=== PATIENT | female | born 1995 | race Caucasian/White ===

== ENCOUNTER 2017-12-12 21:08 | Emergency (ER) | payer OTHER ==
[2017-12-12 21:25] VITALS: BP 145/80; PULSE 87; TEMP 98.1; BMI 37.5
--- NOTE | 2017-12-12 21:25 | PDOC ---
Rapid Medical Evaluation Chief Complaint: Back Pain Time Seen by Provider: 12/12/17 21:23 Medical Evaluation: Allergies Allergy/AdvReac Type Severity Reaction Status Date / Time corn [[place]] Allergy Unknown Verified 06/05/16 21:25 egg Allergy Unknown Verified 06/05/16 21:25 peanut Allergy Unknown Verified 06/05/16 21:25 No Known Drug Allergies Allergy Verified 06/05/16 21:25 shellfish derived Allergy Verified 06/05/16 21:25 12/12/17 21:23 Pt. is a 22 y/o F who presents with one week of low back pain radiating down the L leg. No bladder/bowel incontinence, saddle anesthesia Exam: Normal gait, AAOx3, no gross neuro deficits Orders: nothing Pt. to proceed to ED for further evaluation. Discharge Disposition - Diagnosis Back pain Qualifiers: Back pain location: back pain in unspecified location Chronicity: unspecified Back pain laterality: unspecified Qualified Code(s): M54.9 - Dorsalgia, unspecified - Referrals Referrals: Alba Patrick MD [Primary Care Provider] - - Patient Instructions - Post Discharge Activity
--- NOTE | 2017-12-12 22:10 | PDOC ---
History of Present Illness - General Chief Complaint: Back Pain Stated Complaint: BACK PAIN Time Seen by Provider: 12/12/17 21:23 - History of Present Illness Initial Comments: 22-year-old female with a past medical history significant for polycystic ovarian disease on oral control presents for evaluation of lower back pain with bilateral leg radiculopathy about the posterior lateral aspect of both legs left greater than right. She denies any loss of bowel or bladder function or saddle paresthesias. Pain is exacerbated with activity and relieved with rest with the above-mentioned radiation she has taken Motrin without much relief. 12/12/17 22:06 Past History - Past Medical History Allergies/Adverse Reactions: Allergies Allergy/AdvReac Type Severity Reaction Status Date / Time corn [[place]] Allergy Unknown Verified 12/12/17 21:26 egg Allergy Unknown Verified 12/12/17 21:26 peanut Allergy Unknown Verified 12/12/17 21:26 No Known Drug Allergies Allergy Verified 12/12/17 21:26 shellfish derived Allergy Verified 12/12/17 21:26 Home Medications: Ambulatory Orders Cyclobenzaprine HCl [Flexeril 10 mg] 10 mg PO HS PRN #10 tablet 12/12/17 Ibuprofen [Motrin -] 600 mg PO TID #30 tablet 12/12/17 Anemia: No Asthma: Yes Cancer: No Cardiac Disorders: No CVA: No COPD: No CHF: No Dementia: No Diabetes: No GI Disorders: No Disorders: No HTN: No Hypercholesterolemia: No Liver Disease: No Seizures: No Thyroid Disease: Yes (HYPOTHYROIDISM) Other medical history: PCOS - Suicide/Smoking/Psychosocial Hx Smoking History: Never smoked Have you smoked in the past 12 months: No Information on smoking cessation initiated: No Hx Alcohol Use: No Drug/Substance Use Hx: No Substance Use Type: None Hx Substance Use Treatment: No Review of Systems - Review of Systems Musculoskeletal: Yes: See HPI, Back Pain All Other Systems: Reviewed and Negative *Physical Exam - Vital Signs Last Vital Signs Temp Pulse Resp BP Pulse Ox 98.1 F 87 19 145/80 100 12/12/17 21:21 12/12/17 21:21 12/12/17 21:21 12/12/17 21:21 12/12/17 21:21 - Physical Exam Comments: Lumbar spine skin color and temperature within normal limits there is palpable bilateral paralumbar musculature spasm. Decreased range of motion. She has 5 out of 5 strength in bilateral lower extremities and EHL plantar and dorsiflexion quadriceps and hamstrings as well as hip flexion. She has no gross sensorimotor deficits she has a positive straight leg raise test on the right and left she's neurovascularly intact. 12/12/17 22:07 ED Treatment Course - ADDITIONAL ORDERS Additional order review: Laboratory Results 12/12/17 21:50 Urine HCG, Qual Negative Medical Decision Making - Medical Decision Making This is lumbar radiculopathy this 22-year-old female I will treat her with Motrin and Flexeril as she is already on a steroid for her polycystic ovarian disease. I will have her follow-up with spine surgery. 12/12/17 22:08 *DC/Admit/Observation/Transfer Diagnosis at time of Disposition: Lumbar radiculitis Back pain Qualifiers: Back pain location: back pain in unspecified location Chronicity: unspecified Back pain laterality: unspecified Qualified Code(s): M54.9 - Dorsalgia, unspecified - Discharge Dispostion Disposition: HOME Condition at time of disposition: Stable Decision to Admit order: No - Prescriptions Prescriptions: Cyclobenzaprine HCl [Flexeril 10 mg] 10 mg PO HS PRN #10 tablet PRN Reason: Muscle Spasms Ibuprofen [Motrin -] 600 mg PO TID #30 tablet - Referrals Referrals: Alba Patrick MD [Primary Care Provider] - Luis Rodriguez MD [Staff Physician] - - Patient Instructions Printed Discharge Instructions: Lumbar Radiculopathy, DI for Lumbar Radiculopathy Additional Instructions: These return to the emergency room should her symptoms worsen or go unresolved. I'm unable to prescribe a steroid because you are already on a control pill. Take the Motrin and Flexeril as prescribed be sure to follow-up with spine surgery within the next 1-2 days - Post Discharge Activity
== END 2017-12-12 22:12 | disposition home or self-care (01) ==
LOC: JERFT 21:08
DX: M54.16 Radiculopathy, lumbar region (principal); E28.2 Polycystic ovarian syndrome; E03.9 Hypothyroidism, unspecified
CPT/HCPCS: 84703; 99281-25

== ENCOUNTER 2017-12-14 04:38 | Emergency (ER) | payer OTHER ==
[2017-12-14] MEDS ORDERED: KETOROLAC TROMETHAMINE 30 MG/1 ML VIAL IM ONE (05:42)
[2017-12-14 05:48] VITALS: BP 133/72; PULSE 84; TEMP 98.3; BMI 34.5
[2017-12-14 05:50] LABS: URINE APPEARANCE CLEAR; URINE BILIRUBIN NEGATIVE (<2.0 mg/dL); URINE COLOR LTYELLOW; URINE GLUCOSE (UA) NEGATIVE (NEGATIVE); URINE KETONE NEGATIVE (NEGATIVE); URINE LEUK ESTERASE NEGATIVE (NEGATIVE); URINE NITRITE NEGATIVE (NEGATIVE); URINE PROTEIN NEGATIVE (NEGATIVE); URINE UROBILINOGEN NEGATIVE mg/dL (0.2-1.0)
[2017-12-14 05:52] LABS: HCG,QUALITATIVE URINE NEGATIVE
[2017-12-14 05:57] LABS: EPI CELLS RARE /HPF (FEW); URINE BACTERIA RARE /hpf (NONE SEEN)
--- NOTE | 2017-12-14 06:08 | PDOC ---
History of Present Illness - General Chief Complaint: Back Pain Stated Complaint: BACK PAIN Time Seen by Provider: 12/14/17 05:01 History Source: Patient - History of Present Illness Initial Comments: 12/14/17 06:00 22 year old female with lower back pain with pain radiating to both legs. right leg worse than left leg. Patient was seen in the ED 2 days ago , was give flexeril and ibuprofen. 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 Past History - Past Medical History Allergies/Adverse Reactions: Allergies Allergy/AdvReac Type Severity Reaction Status Date / Time corn [[place]] Allergy Unknown Verified 12/14/17 05:49 egg Allergy Unknown Verified 12/14/17 05:49 peanut Allergy Unknown Verified 12/14/17 05:49 No Known Drug Allergies Allergy Verified 12/12/17 21:26 shellfish derived Allergy Verified 12/14/17 05:49 Home Medications: Ambulatory Orders Cyclobenzaprine HCl [Flexeril 10 mg] 10 mg PO HS PRN #10 tablet 12/12/17 Ibuprofen [Motrin -] 600 mg PO TID #30 tablet 12/12/17 Anemia: No Asthma: Yes Cancer: No Cardiac Disorders: No CVA: No COPD: No CHF: No Dementia: No Diabetes: No GI Disorders: No Disorders: No HTN: No Hypercholesterolemia: No Liver Disease: No Seizures: No Thyroid Disease: Yes (HYPOTHYROIDISM) - Suicide/Smoking/Psychosocial Hx Smoking History: Never smoked Have you smoked in the past 12 months: No Information on smoking cessation initiated: No Hx Alcohol Use: No Drug/Substance Use Hx: No Substance Use Type: None Hx Substance Use Treatment: No Review of Systems - Review of Systems Able to Perform ROS?: Yes Is the patient limited Nepali proficient: No Musculoskeletal: Yes: Back Pain *Physical Exam - Vital Signs Last Vital Signs Temp Pulse Resp BP Pulse Ox 98.3 F 84 18 133/72 99 12/14/17 05:44 12/14/17 05:44 12/14/17 05:44 12/14/17 05:44 12/14/17 05:44 - Physical Exam General Appearance: Yes: Appropriately Dressed Gastrointestinal/Abdominal: positive: Normal Bowel Sounds, Soft Musculoskeletal: positive: Vertebral Tenderness (lumbar area tenderness, able to weightbear) Extremity: positive: Normal Capillary Refill, Normal Inspection, Normal Range of Motion, Other (able to leg raise) Integumentary: positive: Normal Color, Dry, Warm Neurologic: positive: Fully Oriented, Alert, Normal Mood/Affect ED Treatment Course - ADDITIONAL ORDERS Additional order review: Laboratory Results 12/14/17 05:33 Urine HCG, Qual Negative - RADIOLOGY Radiology Studies Ordered: Category Date Time Status SPINE-LUMBAR SACRAL [RAD] Stat Radiology 12/14/17 05:10 Ordered Medical Decision Making - Medical Decision Making 12/14/17 06:09 LOw back pain P: lumbar spine xray pain control decadron *DC/Admit/Observation/Transfer Diagnosis at time of Disposition: Lumbar radiculitis - Referrals Referrals: Alba Patrick MD [Primary Care Provider] - Ashkan Mcnair MD [Staff Physician] - Call tomorrow - Patient Instructions Printed Discharge Instructions: DI for Lumbar Radiculopathy Additional Instructions: continue flexeril and ibuprofen as prescribed. follow up with orthopedic as soon as possible. Additional Instructions: * Please call your personal physician to report your Emergency Department visit and to report your progress, if any. * If there is no improvement in symptoms in 2 days call your physician. * Return to the Emergency Department for any worsening symptoms. - Post Discharge Activity
[2017-12-14] MEDS ORDERED: DEXAMETHASONE SOD PHOSPHATE 10 MG/1 ML VIAL IM ONE (06:52)
[2017-12-14] MEDS ORDERED: DEXAMETHASONE SOD PHOSPHATE 10 MG/1 ML VIAL ONE (06:53)
[2017-12-14] MEDS ORDERED: KETOROLAC TROMETHAMINE 30 MG/1 ML VIAL ONE (06:53)
--- NOTE | 2017-12-14 07:34 | PDOC ---
*Physical Exam - Vital Signs Last Vital Signs Temp Pulse Resp BP Pulse Ox 98.3 F 84 18 133/72 99 12/14/17 05:44 12/14/17 05:44 12/14/17 05:44 12/14/17 05:44 12/14/17 05:44 - Physical Exam General Appearance: Yes: Appropriately Dressed. No: Apparent Distress HEENT: positive: Normal Voice Neck: positive: Supple Respiratory/Chest: negative: Respiratory Distress Gastrointestinal/Abdominal: positive: Soft. negative: Tender Musculoskeletal: negative: CVA Tenderness, Vertebral Tenderness Integumentary: positive: Dry, Warm Neurologic: positive: Fully Oriented, Alert, Normal Mood/Affect, Motor Strength 10/27 ED Treatment Course - ADDITIONAL ORDERS Additional order review: Laboratory Results 12/14/17 05:33 Urine Color Ltyellow Urine Appearance Clear Urine pH 6.0 Ur Specific [place] 1.019 Urine Protein Negative Urine Glucose (UA) Negative Urine Ketones Negative Urine Blood 1+ H Urine Nitrite Negative Urine Bilirubin Negative Urine Urobilinogen Negative Ur Leukocyte Esterase Negative Urine WBC (Auto) <1 Urine RBC (Auto) 2 Ur Epithelial Cells Rare Urine Bacteria Rare Urine HCG, Qual Negative - Medications Given in the ED: ED Medications Discontinued Medications Generic Name Dose Route Start Last Admin Trade Name Freq PRN Reason Stop Dose Admin Dexamethasone Sodium Phosphate 10 mg 12/14/17 06:52 12/14/17 06:58 Decadron Injection - IM 12/14/17 06:53 10 mg ONCE ONE Administration Ketorolac Tromethamine 30 mg 12/14/17 05:42 12/14/17 05:50 Toradol Injection - IM 12/14/17 05:43 30 mg ONCE ONE Administration Medical Decision Making - Medical Decision Making 12/14/17 07:32 Received sign out at 7am Patient is a 22-year-old female, history of PCOS, here for second ER visit for lower back pain. Patient was seen in ED 2 days ago, diagnosed with lumbar radiculopathy and discharged on Motrin and Flexeril. Patient returned today with persistent pain. Pain located to lower back radiating to bilateral lower extremities, left greater than right. UA and test negative. X-ray pending. Pt has since been given pain meds and pending reassessment. Plan is to dc w/ ortho spine f/u per [facility] 12/14/17 07:41 On reevaluation, patient states pain is a bit improved with Toradol and Decadron in ED. Patient now reports that she does have a history of chronic lower back pain and that several years ago when she had a particularly severe case, she was diagnosed with left-sided sciatica. States she might have had an MRI but does not remember. Also states she's had multiple x-rays with no findings. Has never seen a medical record retrieval specialist, but usually follows up with her PMD which she has not seen in a long time per patient. Patient states pain reoccurred this week, located to lower back radiating to bilateral lower extremities, left greater than right, feels like pressure and wakes her up at night. States Motrin and Flexeril not helping at home. Denies any lower extremity weakness, numbness, tingling, saddle anesthesia or bowel or bladder incontinence. Patient ambulatory in ED. Will cancel x-ray as discussed with patient as no utility in plain films at this time as no recent trauma. Will discharge with a small dose of tramadol and have patient follows up with neurologist. Reasons to return to ER discussed with patient *DC/Admit/Observation/Transfer Diagnosis at time of Disposition: Lumbar radiculitis - Discharge Dispostion Disposition: HOME Condition at time of disposition: Improved - Prescriptions Prescriptions: Tramadol HCl 50 mg PO Q6H #12 tablet MDD 200 mg - Referrals Referrals: Ashkan Mcnair MD [Staff Physician] - Call tomorrow Alba Patrick MD [Primary Care Provider] - Awais Erazo MD [Staff Physician] - - Patient Instructions Printed Discharge Instructions: DI for Lumbar Radiculopathy Additional Instructions: Continue Motrin and Flexeril for pain. If medications do not work, you can take a dose of tramadol. Tramadol can make you sleepy, so do not take meds if you are leaving the house or driving. It can also make you constipated so drink plenty of water, increase fiber in your diet and you can also take milk of magnesia as needed for constipation. Please follow-up with Dr. Herron of ortho spine or with Dr Erazo of neurology for further evaluation for your back pain. If symptoms worsen as discussed with you in ER, return to ER immediately - Post Discharge Activity Forms/Work/School Notes: Back to Work
== END 2017-12-14 08:12 | disposition home or self-care (01) ==
LOC: JER 04:38
PROC: 3E023GC Introduction of Other Therapeutic Substance into Muscle, Percutaneous Approach (ICD-10-PCS; principal; 2017-12-14)
PROC: 3E0233Z Introduction of Anti-inflammatory into Muscle, Percutaneous Approach (ICD-10-PCS; 2017-12-14)
DX: M54.16 Radiculopathy, lumbar region (principal)
CPT/HCPCS: 81003; 81015; 84703; 96372; 99281-25; J1100

== ENCOUNTER 2018-05-26 23:43 | Emergency (ER) | payer OTHER ==
[2018-05-27 01:11] VITALS: BMI 34.4
--- NOTE | 2018-05-27 01:13 | PDOC ---
History of Present Illness - General Chief Complaint: Back Pain Stated Complaint: BACK PAIN Time Seen by Provider: 05/27/18 01:01 History Source: Patient Exam Limitations: No Limitations - History of Present Illness Initial Comments: 05/27/18 01:09 CHIEF COMPLAINT: Left lower back pain HISTORY OF PRESENT ILLNESS: This is a 23-year-old woman past medical history of lower back pain with sciatica, asthma, PCOS presents emergency department for evaluation of acute on chronic lower back pain. Patient states she is in her usual back pain which radiates down the left buttocks into the back of her left leg. Patient reports the pain is worse with flexion of the hip and ambulation. Patient states she got home from work today and was changing her clothes when the pain started gradually and then upon a few steps after initial onset of pain the pain reached its maximum of 9/10. Patient presented to the emergency department for evaluation. She denies any incontinence of bladder or bowel, difficulty in micturition, saddle anesthesia, foot drop, IV drug use or history of cancer. REVIEW OF SYSTEMS: GENERAL: Afebrile, denies any weakness RESPIRATORY: No cough, wheezing, or hemoptysis. CARDIAC: No chest pain or shortness of breath MUSCULOSKELETAL: Pain to generalized lower back. No point tenderness. Pain worse on left than right. SKIN : No erythema, no bruising, no deformity. GI/: Denies any abdominal pain, no urinary difficulty, incontinence or urinary retention. RECTAL: Denies any difficulty this A.m. NEUROLOGICAL: Denies any numbness or tingling. No neurosensory deficits. PHYSICAL EXAM: GENERAL: The patient is awake, alert, and fully oriented, in no acute distress. RESPIRATORY: Lungs clear bilaterally, no rhonchi wheezes or crackles CARDIAC: S1-S2 audible, no murmur rub or gallop MUSCULOSKELETAL: Pain to left lower back, nonradiating, no sensory deficit. Less than 2 second cap refill, +2 pedal pulses. No spinal point tenderness. Normal reflexive and no deficits to sensation or strength. No palpable muscle spasms. Pain worsens with passive flexion of left hip. GI/: Abdomen soft, nontender, nondistended. No rebound tenderness. No masses palpable. RECTAL: Deferred patient with no neurological findings SKIN: Warm, Dry, normal turgor, no erythema, no edema no bruising. Past History - Past Medical History Allergies/Adverse Reactions: Allergies Allergy/AdvReac Type Severity Reaction Status Date / Time corn [[place]] Allergy Unknown Verified 12/14/17 05:49 egg Allergy Unknown Verified 12/14/17 05:49 peanut Allergy Unknown Verified 12/14/17 05:49 No Known Drug Allergies Allergy Verified 12/12/17 21:26 shellfish derived Allergy Verified 12/14/17 05:49 Home Medications: Ambulatory Orders Cyclobenzaprine HCl [Flexeril 10 mg] 10 mg PO HS PRN #10 tablet 12/12/17 Ibuprofen [Motrin -] 600 mg PO TID #30 tablet 12/12/17 Tramadol HCl 50 mg PO Q6H #12 tablet MDD 200 mg 12/14/17 Anemia: No Asthma: Yes Cancer: No Cardiac Disorders: No CVA: No COPD: No CHF: No Dementia: No Diabetes: No GI Disorders: No Disorders: No HTN: No Hypercholesterolemia: No Liver Disease: No Seizures: No Thyroid Disease: Yes (HYPOTHYROIDISM) - Suicide/Smoking/Psychosocial Hx Smoking History: Never smoked Have you smoked in the past 12 months: No Hx Alcohol Use: No Drug/Substance Use Hx: No Substance Use Type: None Hx Substance Use Treatment: No Medical Decision Making - Medical Decision Making 05/27/18 01:12 A/P: 23-year-old female with acute on chronic lower back pain No spinal tenderness noted Pain to palpation over the left paraspinous muscles. No muscle spasms present Pain worsens with flexion of the left hip No neurosensory deficits present Urine , urinalysis, analgesia, reassess 05/27/18 02:54 Patient still with mild pain after Toradol, Tylenol, Valium, Decadron. Patient states pain is tolerable. I will discharge the patient home to follow-up with her neurologist and her previously scheduled appointment later this month. Patient is to contact her neurologist today to see if she can move her appointment up sooner. Patient is in agreement this plan and is verbalizes understanding of discharge instructions. *DC/Admit/Observation/Transfer Diagnosis at time of Disposition: Back pain Qualifiers: Back pain location: low back pain Chronicity: acute Back pain laterality: left Sciatica presence: with sciatica Sciatica laterality: sciatica of left side Qualified Code(s): M54.42 - Lumbago with sciatica, left side - Discharge Dispostion Disposition: HOME Condition at time of disposition: Fair Decision to Admit order: No - Referrals Referrals: Alba Patrick MD [Primary Care Provider] - - Patient Instructions Additional Instructions: Take Tylenol or Motrin as needed for pain. Follow manufacturers instructions for appropriate dosage. Clinical your neurologist today to see if he can move her appointment up sooner this month. Warm moist heat applied to your back may help alleviate pain. Return to emergency department for discoloration of the foot, numbness or tingling to the foot, worsening pain, or any other concerns. Thank you very much for choosing us to provide your emergent healthcare needs. - Post Discharge Activity Forms/Work/School Notes: Back to Work
[2018-05-27] MEDS ORDERED: ACETAMINOPHEN 500 MG TABLET (FP) PO ONE (01:14)
[2018-05-27] MEDS ORDERED: ACETAMINOPHEN 325 MG TABLET (FP) ONE (01:19)
[2018-05-27 01:55] LABS: HCG,QUALITATIVE URINE Negative
[2018-05-27] MEDS ORDERED: diazePAM 5 MG TABLET PO ONE (01:56)
[2018-05-27] MEDS ORDERED: KETOROLAC TROMETHAMINE 30 MG/1 ML VIAL IVPUSH ONE (01:56)
[2018-05-27 02:01] LABS: URINE APPEARANCE CLEAR; URINE BILIRUBIN NEGATIVE (<2.0 mg/dL); URINE COLOR LTYELLOW; URINE GLUCOSE (UA) NEGATIVE (NEGATIVE); URINE KETONE NEGATIVE (NEGATIVE); URINE LEUK ESTERASE NEGATIVE (NEGATIVE); URINE NITRITE NEGATIVE (NEGATIVE); URINE PROTEIN NEGATIVE (NEGATIVE); URINE UROBILINOGEN NEGATIVE mg/dL (0.2-1.0)
[2018-05-27] MEDS ORDERED: KETOROLAC TROMETHAMINE 30 MG/1 ML VIAL ONE (02:06)
[2018-05-27] MEDS ORDERED: diazePAM 5 MG TABLET ONE (02:09)
[2018-05-27] MEDS ORDERED: DEXAMETHASONE SOD PHOSPHATE 4 MG/1 ML VIAL IVPUSH ONE (02:45)
[2018-05-27] MEDS ORDERED: DEXAMETHASONE SOD PHOSPHATE 4 MG/1 ML VIAL ONE (02:50)
[2018-05-27 03:10] VITALS: BP 122/70; PULSE 72; TEMP 98.4
== END 2018-05-27 03:07 | disposition home or self-care (01) ==
LOC: JER 23:43
PROC: 3E033GC Introduction of Other Therapeutic Substance into Peripheral Vein, Percutaneous Approach (ICD-10-PCS; principal; 2018-05-26)
PROC: 3E0333Z Introduction of Anti-inflammatory into Peripheral Vein, Percutaneous Approach (ICD-10-PCS; 2018-05-26)
DX: M54.42 Lumbago with sciatica, left side (principal)
CPT/HCPCS: 81003; 84703; 87086; 96374; 96375; 99282-25

== ENCOUNTER 2018-05-28 01:12 | Observation (INO) | payer OTHER ==
[2018-05-28 01:22] VITALS: BMI 35.4
[2018-05-28] MEDS ORDERED: LORazepam 2 MG/ML SDV VIAL ONE (02:17)
--- NOTE | 2018-05-28 03:44 | PDOC ---
Attending Attestation - Resident Resident Name: Casey Lowery - ED Attending Attestation I have performed the following: I have examined & evaluated the patient, The case was reviewed & discussed with the resident, I agree w/resident's findings & plan, Exceptions are as noted - HPI HPI: 05/28/18 03:44 Ms Rivers is a 23 yo F who presents to the ER for evaluation of back pain She has a h/o PCOS and a history of chronic back pain for which she has been seen in the ER several times She was followed up by a Neurologist who referred her for a repeat MRI which demonstrated left L5 nerve compression, central spinal canal stenosis, left S1 compression, mild compression left S2, no L3-L4 central canal stenosis. Subsequent to this, pt was seen by her Neurologist who recommended conservative therapy - PT. PT was supposed to have a follow up appointment with neurosurgeon blake. Yesterday, she was crushing boxes at work by stepping on them She noted that after this her back became more painful Pt was seen in the ER given medications which improved her symptoms Pt went home and by the morning, her pain has worsened No bowel or bladder incontinence (pt has not been able to have a bowel movement due to pain) She is ambulatory but this is painful for her No direct trauma to the back No IVDU 05/28/18 03:51 - Physicial Exam PE: 05/28/18 04:13 On examination: General: A&O x3 appearing in mild distress, anxious Skin: w/o signs of trauma, ecchymosis at pain site HEENT: PERRLA Neck: Supple, firm, FROM, NT Respiratory: CTA w/o W/R/R B/L Cardiac: RRR, w/o M/R/G GI: NT/ND, NL bowel sounds Back is symmetrical, straight. Pt is able to bend forward but this elicits pain. No tenderness appreciated to vertebrae. No step-offs. No deformities appreciated. There is no CVA tenderness appreciated bilaterally. The patient without any paravertebral muscle tenderness. Musculoskeletal: The patient has limited range of motion of lower extremities - due to pain. Straight leg raise is (+) on left side. Dorsiflexion and plantar flexion are intact of the bilateral lower extremities bilaterally. Sensation is intact throughout the distal feet. Neurologic: The patient is awake, alert, oriented x3. Gross motor and sensory exam is found to be intact. Muscle strength is 5/5 lower extremities bilaterally (L4,L5, S1). Sensation intact throughout (L4, L5, S1) - Medical Decision Making 05/28/18 04:16 Pt with chronic back pain which has worsened since yesterday This is now patient's 2nd visit She has been taking anti inflammatories She was given steroids yesterday She reports severe and intractable back pain Will place on observation
--- NOTE | 2018-05-28 04:20 | PDOC ---
History of Present Illness - General Chief Complaint: Pain, Acute Stated Complaint: LOW BACK PAIN Time Seen by Provider: 05/28/18 01:26 History Source: Patient - History of Present Illness Initial Comments: 05/28/18 04:20 23F with pmh of lumbar radiculopathy presents with acute exacerbation of sciatica pain since 2 days ago. She has a h/o PCOS and a history of chronic back pain for which she has been seen in the ER several times She was followed up by Dr. Fuller who referred her for a repeat MRI which demonstrated worsening left L5 nerve compression, central spinal canal stenosis , left S1 compression, mild compression left S2, no L3-L4 central canal stenosis. Patient was then refered to PT and neurosurgery who never followed up as per patient. Pain was exacerbated yesterday upon stromping on boxes. Was given muscle relaxant in the ED with no relief. Pt went home and by the morning, her pain has worsened Denies incontinence. Denies saddle anesthesia Amble to ambulate with difficulty, amble to move her foot, full sensation but pain upon ranging her left leg. Past History - Past Medical History Allergies/Adverse Reactions: Allergies Allergy/AdvReac Type Severity Reaction Status Date / Time corn [[place]] Allergy Unknown Verified 12/14/17 05:49 egg Allergy Unknown Verified 12/14/17 05:49 peanut Allergy Unknown Verified 12/14/17 05:49 No Known Drug Allergies Allergy Verified 12/12/17 21:26 shellfish derived Allergy Verified 12/14/17 05:49 Home Medications: Ambulatory Orders Cyclobenzaprine HCl [Flexeril 10 mg] 10 mg PO HS PRN #10 tablet 12/12/17 Ibuprofen [Motrin -] 600 mg PO TID #30 tablet 12/12/17 Tramadol HCl 50 mg PO Q6H #12 tablet MDD 200 mg 12/14/17 Anemia: No Asthma: Yes Cancer: No Cardiac Disorders: No CVA: No COPD: No CHF: No Dementia: No Diabetes: No GI Disorders: No Disorders: No HTN: No Hypercholesterolemia: No Liver Disease: No Seizures: No Thyroid Disease: Yes (HYPOTHYROIDISM) Other medical history: PCOS - Immunization History Immunization Up to Date: Yes - Suicide/Smoking/Psychosocial Hx Smoking History: Current every day smoker Have you smoked in the past 12 months: Yes Number of Cigarettes Smoked Daily: 6 Information on smoking cessation initiated: No Hx Alcohol Use: No Drug/Substance Use Hx: No Substance Use Type: None Hx Substance Use Treatment: No Review of Systems - Review of Systems Able to Perform ROS?: Yes Is the patient limited Citizen [place] proficient: No Constitutional: No: Symptoms Reported HEENTM: No: Symptoms Reported Respiratory: No: Symptoms reported Cardiac (ROS): No: Symptoms Reported ABD/GI: No: Symptoms Reported : No: Symptoms Reported Musculoskeletal: No: Symptoms Reported Integumentary: No: Symptoms Reported Neurological: Yes: See HPI Endocrine: No: Symptoms Reported *Physical Exam - Vital Signs Last Vital Signs Temp Pulse Resp BP Pulse Ox 98.5 F 77 19 143/79 99 05/28/18 01:19 05/28/18 01:19 05/28/18 01:19 05/28/18 01:19 05/28/18 01:19 - Physical Exam General Appearance: Yes: Nourished, Appropriately Dressed. No: Apparent Distress HEENT: positive: EOMI, Normal ENT Inspection Respiratory/Chest: positive: Lungs Clear, Normal Breath Sounds. negative: Chest Tender, Respiratory Distress Cardiovascular: positive: Regular Rhythm, Regular Rate, S1, S2 Gastrointestinal/Abdominal: positive: Normal Bowel Sounds, Flat, Soft. negative : Tender Musculoskeletal: positive: Normal Inspection. negative: CVA Tenderness Extremity: positive: Normal Capillary Refill, Normal Inspection. negative: Normal Range of Motion Integumentary: positive: Normal Color, Dry, Warm Neurologic: positive: Fully Oriented, Alert, Normal Mood/Affect, Normal Response , Motor Strength 5/5 Moderate Sedation - Procedure Monitoring Vital Signs: Procedure Monitoring Vital Signs Temperature 98.5 F 05/28/18 01:19 Pulse Rate 77 05/28/18 01:19 Respiratory Rate 19 05/28/18 01:19 Blood Pressure 143/79 05/28/18 01:19 O2 Sat by Pulse Oximetry (%) 99 05/28/18 01:19 ED Treatment Course - Medications Given in the ED: ED Medications Discontinued Medications Generic Name Dose Route Start Last Admin Trade Name Freq PRN Reason Stop Dose Admin Lorazepam 3 mg 05/28/18 02:10 05/28/18 02:30 Ativan Injection - IVPUSH 05/28/18 02:11 3 mg ONCE ONE Administration Medical Decision Making - Medical Decision Making 05/28/18 04:57 23f with acute on chronic exacerbation of sciatica pain. Patient feels better with ativan as she is also anxious. However mother states after a couple hours that she is still in pain and anxious which is eventually corroborated by patient. Asking to be admitted for intractable pain and see orthopedic surgeon. Spoke about patient to hospitalist team. \ Admitting to ED short stay. *DC/Admit/Observation/Transfer Diagnosis at time of Disposition: Lumbar radiculitis - Discharge Dispostion Condition at time of disposition: Stable Decision to Admit order: Yes - Referrals Referrals: Alba Patrick MD [Primary Care Provider] - - Patient Instructions - Post Discharge Activity
[2018-05-28] MEDS ORDERED: ACETAMINOPHEN 1000 MG/100 ML VIAL (NON FORMULARY) IVPB ONE (04:35)
[2018-05-28] MEDS ORDERED: morphine CARPU-JECT 2 MG/1 ML DISP.SYRIN IVPUSH ONE (04:43)
[2018-05-28] MEDS ORDERED: MORPHINE SULFATE 2 MG/ML VIAL ONE (05:23)
[2018-05-28] MEDS ORDERED: ACETAMINOPHEN INJECTION 100 ML IVPB ONE (05:23)
--- NOTE | 2018-05-28 07:54 | PDOC ---
*Physical Exam - Vital Signs Last Vital Signs Temp Pulse Resp BP Pulse Ox 98.4 F 64 16 123/80 100 05/28/18 05:35 05/28/18 05:35 05/28/18 05:35 05/28/18 05:35 05/28/18 05:35 ED Treatment Course - Medications Given in the ED: ED Medications Discontinued Medications Generic Name Dose Route Start Last Admin Trade Name Dina PRN Reason Stop Dose Admin Acetaminophen 1,000 mg 05/28/18 04:35 05/28/18 05:35 Ofirmev Injection - IVPB 05/28/18 04:36 1,000 mg ONCE ONE Administration Lorazepam 3 mg 05/28/18 02:10 05/28/18 02:30 Ativan Injection - IVPUSH 05/28/18 02:11 3 mg ONCE ONE Administration Morphine Sulfate 2 mg 05/28/18 04:43 05/28/18 05:30 Morphine Injection - IVPUSH 05/28/18 04:44 2 mg ONCE ONE Administration Medical Decision Making - Medical Decision Making 05/28/18 07:47 Lakshmi Neves is a 23yo woman with a PMH of chronic back pain and PCOS who has presented to the ED twice this week with acute exacerbation of her chronic lumbar radiculopathy. Previous MRI showed compresion of left L5, S1, and mild compression of S2 nerves, central spinal canal stenosis. She has never been seen by neurosurgery. - Neurologically intact on exam - Ms Neves has received ativan 4mg, morphine 2mg, IV acetaminophen - Currently reports 6/10 pain, worse when standing or walking. She is only able to take 4 steps with a shuffling gait - Had been admitted to ED obs. Will contact hospitalist team for full obs admission given lack of significant improvement in symptoms 05/28/18 08:20 - Spoke to Dr Flowers regarding upgrade to overnight obs - Will admit to obs for intractable back pain. No labs at this time unless requested by med/surg team Seen and discussed with Dr Ceballos. Bianca Mercado PGY1 *DC/Admit/Observation/Transfer Diagnosis at time of Disposition: Lumbar radiculitis, Intractable back pain - Discharge Dispostion Condition at time of disposition: Stable Decision to Admit order: Yes - Referrals Referrals: Alba Patrick MD [Primary Care Provider] - - Patient Instructions - Post Discharge Activity
[2018-05-28] MEDS ORDERED: ACETAMINOPHEN 650 MG/20.3 ML ORAL SOLUTION (CUPS) PO PRN (09:06)
[2018-05-28] MEDS ORDERED: ALBUTEROL SO4 8 GM HFA INHALER IH PRN (09:12)
--- NOTE | 2018-05-28 09:15 | HP ---
CHIEF COMPLAINT: LLE pain PCP: Alba Patrick, Neuro: Jonny HISTORY OF PRESENT ILLNESS: Pt is a 23 y/o F with PMH sciatica with recent MRI demonstrating L5 nerve compression, central spinal canal stenosis, left S1 compression, mild compression left S2, no L3-L4 central canal stenosis. She presents to the ED with complaint of LLE pain which originates in her back on the left and shoots down the outside of the leg and into the toes. She describes electrical pain with associated numbness and tingling of the toes. She denies numbness in her groin and denies difficulty holding her bowels and bladder. She denies weakness or muscle wasting in the left leg. No other complaints. ER course was notable for: (1) VSS (2)Ativan, Ofirmev, Morphine (3) Recent Travel: denies PAST MEDICAL HISTORY: Sciatica, PCOS, L5 compression, spinal stenosis, Asthma (uses inhaler every few weeks), Anxiety, Depression PAST SURGICAL HISTORY: denies Social History: Smoking: current active smoker 6 cig/day Alcohol: denies Drugs: denies Family History: Allergies corn [[place]] Allergy (Unknown, Verified 12/14/17 05:49) egg Allergy (Unknown, Verified 12/14/17 05:49) peanut Allergy (Unknown, Verified 12/14/17 05:49) No Known Drug Allergies Allergy (Verified 12/12/17 21:26) shellfish derived Allergy (Verified 12/14/17 05:49) HOME MEDICATIONS: Motrin 600 prn, Nuva ring, Albuterol prn REVIEW OF SYSTEMS CONSTITUTIONAL: Absent: fever, chills, diaphoresis, generalized weakness, malaise, loss of appetite, weight change HEENT: Absent: rhinorrhea, nasal congestion, throat pain, throat swelling, difficulty swallowing, mouth swelling, ear pain, eye pain, visual changes CARDIOVASCULAR: Absent: chest pain, syncope, palpitations, irregular heart rate, lightheadedness , peripheral edema RESPIRATORY: Absent: cough, shortness of breath, dyspnea with exertion, orthopnea, wheezing, stridor, hemoptysis GASTROINTESTINAL: Absent: abdominal pain, abdominal distension, nausea, vomiting, diarrhea, constipation, melena, hematochezia GENITOURINARY: Absent: dysuria, frequency, urgency, hesitancy, hematuria, flank pain, genital pain MUSCULOSKELETAL: Absent: myalgia, arthralgia, joint swelling, back pain, neck pain SKIN: Absent: rash, itching, pallor HEMATOLOGIC/IMMUNOLOGIC: Absent: easy bleeding, easy bruising, lymphadenopathy, frequent infections ENDOCRINE: Absent: unexplained weight gain, unexplained weight loss, heat intolerance, cold intolerance NEUROLOGIC: unsteady gait due to pain Absent: headache, focal weakness or paresthesias, dizziness, , seizure, mental status changes, bladder or bowel incontinence PSYCHIATRIC: Absent: anxiety, depression, suicidal or homicidal ideation, hallucinations. PHYSICAL EXAMINATION Vital Signs - 24 hr 05/28/18 05/28/18 05/28/18 01:19 05:35 07:35 Temperature 98.5 F 98.4 F Pulse Rate 77 Pulse Rate [ 64 Left Radial] Respiratory 19 16 Rate Blood Pressure 143/79 Blood Pressure 123/80 [Left Arm] O2 Sat by Pulse 99 100 100 Oximetry (%) Gen: appears in pain HEENT: NCAT, EOMI, PERRL, multiple piercings Neck: supple, no jvd, no bruits Cardio: rrr, normal s1s2, no mrg Pulm: cta b/l Abd: obese, nondistended, soft, nontender Ext: no muscle wasting, 2+ pulses, no edema, LLE ROM limited by pain Neuro: CN2-12 intact. B/l UE intact strength and sensation. RLE intact strength and sensation. LLE intact sensation throughout. No numbness. 5/5 plantar/knee flexion, 4/5 hip flexion/extension. Straight leg test pos (pt had pain with leg as low as 2" off bed and refused further testing) ASSESSMENT/PLAN: Pt is a 23 y/o F with anxiety, depression, sciatica who presented to ED several times this week with intractable LLE pain. Pt is placed on Obs for intractable pain and inability to ambulate. #Pain -Known Lumbar stenosis with central stenosis -recent MRI demonstrating L5 nerve compression, central spinal canal stenosis, left S1 compression, mild compression left S2, no L3-L4 central canal stenosis -per pt, recent EMG with neurology demonstrated "lots of damage" -failed out pt therapy. Inability to ambulate at this time. -Toradol -Tylenol -Neuro consult. Known to Dr. Fuller. Call placed -Neurosurg consult #Asthma -controlled -resume albuterol IH prn #PPx -Hep Sub Q #Dispo -Obs Iain Flowers MD PGY-2 IM Visit type - Emergency Visit Emergency Visit: Yes Care time: The patient presented to the Emergency Department on the above date and was hospitalized for further evaluation of their emergent condition. - New Patient This patient is new to me today: Yes Date on this admission: 05/28/18 - Critical Care Critical Care patient: No
--- NOTE | 2018-05-28 09:16 | PN ---
Teaching Attending Note Name of Resident: Iain Flowers ATTENDING PHYSICIAN STATEMENT I saw and evaluated the patient. I reviewed the resident's note and discussed the case with the resident. I agree with the resident's findings and plan as documented. SUBJECTIVE: This is a 23 year old woman with a history of obesity, PCOS, asthma , depression, anxiety, low back pain, sciatica who comes to the ED complaining of pain in her low back radiating down her left leg with numbness below her left knee. She is having difficulty ambulating because of the pain. She denies numbness in her groin and she denies incontinence. She recently had an MRI showing left L5 nerve compression, central spinal canal stenosis, left S1 compression, mild compression left S2, no L3-L4 central canal stenosis. She was treated in the ED with acetaminophen 1000 mg IV, Ativan 3 mg IV, morphine 2 mg IV with no improvement. OBJECTIVE: Vital Signs Period Temp Pulse Resp BP Sys/Clements Pulse Ox Last 24 Hr 98.2 F-98.5 F 64-77 16-19 123-143/78-80 99-100 HEART: S1S2, RRR LUNGS: Clear ABDOMEN: Obese, soft, non-tender, non-distended, normal BS EXTREMITIES: No edema BACK: No spinal, paraspinal tenderness NEUROLOGICAL: Sensation intact RLE/LLE. Strength 5/5 in RLE. Strength unable to be tested in LLE secondary to pain. Straight leg raise positive on L and negative on R. B/L patellar and ankle reflexes 2+. Gait not observed - unable to stand secondary to pain. Home Medications Medication Instructions Recorded Ibuprofen [Motrin -] 600 mg PO TID #30 tablet 12/12/17 Albuterol Sulfate Inhaler - 2 inh PO Q6H PRN 05/28/18 [Ventolin Hfa Inhaler -] ASSESSMENT AND PLAN: This is a 23 year old woman with a history of obesity, PCOS, asthma, depression , anxiety, low back pain, sciatica who presented to the ED with worsening pain in her low back radiating down her left leg with numbness below her left knee. 1. Lumbar radiculopathy secondary to lumbar stenosis - Patient continues to have severe pain and unable to ambulate after acetaminophen, morphine, and Ativan - Place in observation - Pain control - Neurosurgery evaluation 2. Asthma - Stable - Albuterol as needed 3. PCOS 4. Depression with anxiety 5. Obesity with BMI 35.4
[2018-05-28] MEDS: IBUPROFEN 600 MG TABLET (FP) PO SCH ×2 (13:58→21:58)
[2018-05-28] MEDS: HEPARIN NA (PORCINE) 5,000 UNITS/ML 1ML VIAL SQ SCH ×2 (13:58→21:59)
[2018-05-28] MEDS: KETOROLAC TROMETHAMINE 15 MG/ML VIAL IVPUSH PRN ×2 (14:13→19:28)
[2018-05-28] MEDS: MORPHINE SULFATE 2 MG/ML VIAL IVPUSH PRN (21:57)
--- NOTE | 2018-05-28 21:57 | CON.NEURO ---
Consult - Past Medical History ...LMP: 11/08/11 - Alcohol/Substance Use Hx Alcohol Use: No - Smoking History Smoking history: Current every day smoker Have you smoked in the past 12 months: Yes Aproximately how many cigarettes per day: 6 Home Medications - Allergies Allergies/Adverse Reactions: Allergies Allergy/AdvReac Type Severity Reaction Status Date / Time corn [[place]] Allergy Unknown Verified 12/14/17 05:49 egg Allergy Unknown Verified 12/14/17 05:49 peanut Allergy Unknown Verified 12/14/17 05:49 No Known Drug Allergies Allergy Verified 12/12/17 21:26 shellfish derived Allergy Verified 12/14/17 05:49 - Home Medications Home Medications: Ambulatory Orders Ibuprofen [Motrin -] 600 mg PO TID #30 tablet 12/12/17 Albuterol Sulfate Inhaler - [Ventolin Hfa Inhaler -] 2 inh PO Q6H PRN 05/28/18 Physical Exam-Neuro Vital Signs: Vital Signs Temperature 98.3 F 05/28/18 18:36 Pulse Rate 83 05/28/18 18:36 Respiratory Rate 18 05/28/18 18:36 Blood Pressure 112/67 05/28/18 18:36 O2 Sat by Pulse Oximetry (%) 100 05/28/18 16:42 Assessment/Plan CC: Severe acute left radicular low back pain HPI : 23 year old female ,history of PCOS, Asthma and chronic low back pain. She has severe recurrent bouts of low back pain, mri of L spine showed there is sereve Left L 5-s1 stenosis along with extrusion of disc fragment in central cannal of Lumbar spine. She is known to me and she was sent for pain management and neurosurgery eval as outpatient , which she never saw. As her pain has gotten worse and she came to ed. Patient did get pt and medication were helping her partially Most of her pain in lower back and shoots down to left lower leg. she have numbness and burning sensation of left leg. She denies any motor weakness, or bowel or bladder symptoms. PMH as above Allergies/Adverse Reactions: Allergies Allergy/AdvReac Type Severity Reaction Status Date / Time corn [[place]] Allergy Unknown Verified 12/14/17 05:49 egg Allergy Unknown Verified 12/14/17 05:49 peanut Allergy Unknown Verified 12/14/17 05:49 No Known Drug Allergies Allergy Verified 12/12/17 21:26 shellfish derived Allergy Verified 12/14/17 05:49 Home Medications: Cyclobenzaprine HCl [Flexeril 10 mg] 10 mg PO HS PRN #10 tablet 12/12/17 Ibuprofen [Motrin -] 600 mg PO TID #30 tablet 12/12/17 Tramadol HCl 50 mg PO Q6H #12 tablet MDD 200 mg 12/14/17 ROS,FH,Social Hx, reviewed in chart NEUROLOGICAL EXAMINATION Alert oriented x 3, speech is normal , eomi , pupils reactive, no face asymmetry, VF normal face sensation and hearing is normal 5/5 all extremity there is diminished sensation on left L5 and s1 distribution in left leg below knee ankle reflex is slightly diminished mri of L spine reviewed Assessment: Severe L5 Radiculoapthy , severe central cannal stenosis on mri of L spine. No bowel or bladder symptoms, no motor weakness Plan: Suggest Neurosurgery consult, pain managemnet pt continue opioid for pain may add steroid Thanking you so much Mihai Fuller MD
[2018-05-29] MEDS: KETOROLAC TROMETHAMINE 15 MG/ML VIAL IVPUSH PRN ×2 (01:42→10:27)
[2018-05-29] MEDS: HEPARIN NA (PORCINE) 5,000 UNITS/ML 1ML VIAL SQ SCH ×2 (05:57→13:22)
[2018-05-29] MEDS: IBUPROFEN 600 MG TABLET (FP) PO SCH ×2 (05:57→13:20)
[2018-05-29] MEDS: MORPHINE SULFATE 2 MG/ML VIAL IVPUSH PRN (06:02)
--- NOTE | 2018-05-29 09:58 | PN ---
Progress Note (short form) - Note Progress Note: NEUROSURGERY CONSULT DICTATED Pt examined History obtained MRI's reviewed Mother at bedside H/o asthma, depression/anxiety, PCOS c/o chronic back pain and intermittent sciatica worse over past few weeks. EMG was abnormal. L leg numbness and tingling. No B/B dysfunction. PE: AF, VSS HEENT- NC/AT; Neck - supple; Cor- RR; Lungs- CTA; Abd- obese, benign; Ext- no sign of DVT CN- intact; Motor- 5/5 except L IP/Quads 4/5, L EHL/ev 4+; Sensation- decreased LT/PP L L4-5-S1; DTR- decreased L patellar and ankle DTR; Back- L sciatic notch tenderness, + SLR on L at 40 degrees MRI- L3-4 to L5-S1 DDD; L L3-4 paracentral disc protrusion with thecal sac and mild L L4 root impingement; central and L moderate to large L4-5 disc protrusion /extrusion with L L4, L5 and thecal sac impingement; moderate L L5-S1 paracentral disc protrusion with L S1 root impingement;when c/w 2013 MRI, L3-4 disc herniation is new PT/truncal stabilization, weight reduction Trial of neurontin Pain management/EPSI discussed Given neurological deficits and reportedly abnormal EMG, surgical intervention could be considered (L L3-4, L4-5, L5-S1 partial laminectomies, microdiscectomies; and would not recommend multilevel fusion at her young age) Pros and cons, risks and benefits discussed Will unfortunately/likely need spinal fusion in her lifetime given multilevel progressive DDD even at her young age If pt develops progressive deficits and/or B/B dysfunction urgent surgery should be considered
[2018-05-29] MEDS ORDERED: predniSONE 10 MG TABLET (UD) PO SCH (10:00)
--- NOTE | 2018-05-29 11:38 | CONS ---
DATE OF CONSULTATION: 05/29/2018 CHIEF COMPLAINT: Lower back pain and left lower extremity radiculopathy. HISTORY OF PRESENT ILLNESS: The patient is a 23-year-old, right-handed female with history of obesity, anxiety/depression, polycystic ovarian disease, and asthma, who complains of chronic, intermittent lower back pain. She has also been experiencing intermittent left lower extremity sciatica. For the past few weeks, her pain has worsened. She denies any recent trauma or fall. Her pain radiates down to her buttock and side. She has numbness and tingling of her calf and grissom on the left leg. There is numbness and tingling in the left lower extremity and she has mild weakness when she is walking. She has had these symptoms intermittently for the past few years. She had an MRI about 4 years ago. She was going to physical therapy, but she did not have time to go because of her work. She never had any epidural injection. She trigger point injections with her neurologist. She denied bowel or bladder dysfunction. Pain is worse with straining and walking. PAST MEDICAL HISTORY: Significant for asthma, depression/anxiety, polycystic ovarian disease. CURRENT MEDICATIONS: Include Deltasone, subcutaneous heparin, albuterol, Toradol, Motrin, morphine, and Tylenol. ALLERGIES: EGGS, PEANUTS, and SHELLFISH. There is no known drug allergy. FAMILY HISTORY: Significant for back pain and sciatica in her biological father. SOCIAL HISTORY: She lives at home with her family. She works in retail. She is on her feet all day long. REVIEW OF SYSTEMS: Otherwise negative for major constitutional, head and neck, cardiovascular, pulmonary, gastrointestinal, genitourinary, endocrinological, neurological or psychological problem except for the above. PHYSICAL EXAMINATION: Vital Signs: Temperature is 98.5, blood pressure is 113/61, her pulse rate is 62, O2 saturation is 100% on room air. HEENT: Examination shows her to be normocephalic, atraumatic, anicteric. Neck: Supple with no lymphadenopathy, no carotid bruit. Coronary: Examination demonstrated a regular rhythm. Lungs: Clear to auscultation bilaterally. Abdomen: Soft, nontender, and nondistended with active bowel sounds. Extremities: Examination shows no clubbing, cyanosis, edema. Distal pulses are 2+. There are no signs of DVT. Neurologic: She is awake, alert, and oriented x4. Cranial nerve examination is intact 2 through 12. Motor examination shows 5/5 strength, except left iliopsoas and quadriceps which are 4/5 and left extensor hallucis longus and foot eversion which are 4+. Sensory examination demonstrated decreased pinprick and light touch sensation of the left L4, L5, S1 distribution. Deep tendon reflexes are 2+, except for diminished left patellar and ankle reflexes. Examination of back shows left sciatic notch tenderness. She has positive straight leg raise on the left side at 40 degrees. She has antalgic gait, favoring the right lower extremity. MRI examination of the lumbar spine from April 11 was compared to a prior MRI from 2013. There is evidence of L3-4, L4-5, and L5-S1 degenerative disk disease. There is left L3-4 paracentral disk protrusion with mild thecal sac and left L4 nerve root impingement. There is degenerative disk space narrowing at L4-5 with central and left-sided L4-5 paracentral disk extrusion with left L4 and L5 nerve root impingement. There is degenerative disk disease at L5-S1 with left-sided paracentral disk protrusion with thecal sac and left S1 nerve root impingement. The L3-4 disk disease is new, compared to the MRI from 4 years ago. IMPRESSION: 1. L3-L4, L4-L5, and L5-S1 degenerative disk disease with left L3-L4, L4-L5, and L5-S1 paracentral disk herniation and corresponding lumbar nerve root impingement syndrome. 2. Mild obesity. 3. Asthma. 4. Anxiety/depression. 5. Polycystic ovarian disease. RECOMMENDATIONS: The patient presents with chronic lower back pain and left-sided lumbar radiculopathy. Her pain has worsened over the past few weeks. She was asked to undergo physical therapy, but has not done so. Her examination shows her to have weakness in the proximal lower extremity greater than the distal lower extremity. There is also numbness in the left L4, L5, and S1 distribution with associated decreased reflexes of the left lower extremity. She also has a positive straight leg raise. She can continue to pursue medical treatment, and I took the liberty of putting her on gabapentin 300 mg 3 times a day, as well. She should lose weight and undergo truncal stabilization exercises for her lower back. She can also consider pain management injections such as epidural. On the other hand, she does have neurological deficits corresponding to her current symptomatology. She does have three-level disk herniation on the left side at L3-4, L4-5, and the L5-S1. Given the deficits, she is a candidate for left-sided lumbar partial laminectomies at L3-4, L4-5, and the L5-S1 with concurrent microdiskectomy. The pros and cons and treatment approach were discussed with the patient and her mother at the bedside today. All questions were answered. If she develops worsening neurological deficit or bowel/bladder dysfunction, surgical intervention should be urgently performed. All questions were answered at bedside. JACQUELINE MENDOSA M.D. [id number]
--- NOTE | 2018-05-29 13:59 | PN ---
Teaching Attending Note Name of Resident: Sushila Pulido ATTENDING PHYSICIAN STATEMENT I saw and evaluated the patient. I reviewed the resident's note and discussed the case with the resident. I agree with the resident's findings and plan as documented with exceptions below. SUBJECTIVE: Patient seen and examined, pain radiating down left leg, noted ambulating in the hallway with PT with no concerns. NO new weakness/tingling/numbness/urinary or bowel symptoms. OBJECTIVE: Vital Signs Period Temp Pulse Resp BP Sys/Clements Pulse Ox Last 24 Hr 98.3 F-98.5 F 62-83 18-18 112-133/61-90 99-100 Intake & Output 05/26/18 05/27/18 05/28/18 05/29/18 23:59 23:59 23:59 23:59 Intake Total 110 Balance 110 Weight 220 lb 6.4 oz General: sitting in bed in no acute distress, ambulating in the hallway with PT with stable gait and no concerns neuro: AAOx3, power 5/5, sensation intact to light touch Musculoskeletal: no spinal tenderness Home Medications Medication Instructions Recorded Ibuprofen [Motrin -] 600 mg PO TID #30 tablet 12/12/17 Albuterol Sulfate Inhaler - 2 inh PO Q6H PRN 05/28/18 [Ventolin HFA Inhaler -] Gabapentin [Neurontin -] 300 mg PO TID 28 Days #90 capsule 05/29/18 ASSESSMENT AND PLAN: 23 yof with acute on chronic low back pain -Acute on chronic low back pain -Lumbar radiculopathy with sciatica -Obesity Plan; Neurology/neurosurgery input noted. Patient noted ambulating with PT without concerns. outpatient PT and neurosurgery follow up recommended. Advised to take Prilosec while on ibuprofen or if placed on steroids in future. D/c home today. Plan discussed with patient in detail and all questions answered.
[2018-05-29] MEDS ORDERED: GABAPENTIN 300 MG CAPSULE (FP) PO SCH (14:00)
[2018-05-29] MEDS ORDERED: LORazepam 1 MG TABLET PO ONE (14:16)
--- NOTE | 2018-05-29 15:57 | DS ---
Physical Exam: SUBJECTIVE: Patient seen and examined at bedside no acute events overnigt patient is in pain but tolerating OBJECTIVE: Vital Signs Period Temp Pulse Resp BP Sys/Clements Pulse Ox Last 24 Hr 98.2 F-98.5 F 62-83 18-18 112-144/61-90 99-100 PHYSICAL EXAM GENERAL: The patient is awake, alert, and fully oriented, in no acute distress. HEAD: Normal with no signs of trauma. EYES: PERRL, extraocular movements intact, sclera anicteric, conjunctiva clear. ENT: Ears normal, nares patent, oropharynx clear without exudates, moist mucous membranes. NECK: Trachea midline, full range of motion, supple. LUNGS: Breath sounds equal, clear to auscultation bilaterally, no wheezes, no crackles, no accessory muscle use. HEART: Regular rate and rhythm, S1, S2 without murmur, rub or gallop. ABDOMEN: Soft, nontender, nondistended, normoactive bowel sounds, no guarding, no rebound, no hepatosplenomegaly, no masses. EXTREMITIES: 2+ pulses, warm, well-perfused, no edema. NEUROLOGICAL: Cranial nerves II through XII grossly intact. Normal speech, gait not observed. decreased left lower exremity sensation PSYCH: Normal mood, normal affect. SKIN: Warm, dry, normal turgor, no rashes or lesions noted. LABS HOSPITAL COURSE: Date of Admission:05/28/18 23 y/o female with history of sciatica, PCOS, anxitety presnets to the ED With intractavble leg and back pain for the past 4 days. she has had sciatica since age 18 [address] corbin however the oast few dyas has been in a lot of pain. she endorses radiculopathy with pain and numbness/tingling down her left leg with decreased sensation. she was given toradol, morphien. she was seen by neurosurgery who suggested pain control, PT as an outpatiient and prescrbed gabapenitn 300mg TID in addition to taking ibuporofen as needed. she was provided with strcit follow up for pain managment, PT and to follow up with neurosurgery Date of Discharge: 05/29/18 Minutes to complete discharge: 39 Discharge Summary Reason For Visit: LUMBAR RADICULITIS/INTRACTABLE BACK PAIN Current Active Problems Intractable back pain (Acute) Lumbar radiculitis (Acute) Condition: Stable - Instructions Diet, Activity, Other Instructions: You were in the hospital because of intractable back/leg pain. Please resume all of your home medications in addition: -please take gabapentin 300mg three times per day -please take ibuprofen 600mg when needed Do not drive, operate heavy machinery while on medications that can make you sleepy. Recommend over the counter prilosec 20 mg daily as needed for reflux symptoms while on ibuprofen. You were seen by surgeon and advised outpatient follow up. You are advised outpatient physical therapy, script has been provided, please discuss with your doctor. It is very important that you follow up with your outpatient appointments. You need to call the following doctors' offices to make appointments. Dr. Hugh Patrick - Primary Care Physician Dr. Mihai Fuller - Neurology Dr. Kurtis Argueta - Neurosurgery Dr. Tee Walker - Pain management *if you begin to experience any numbness/tingling, change in bowel or bladder habits, chest pain, shortness of breath or any new concerns, please return to the emergency room immediately Referrals: Mihai Fuller MD [Staff Physician] - 1 Week Viet Walker MD [Staff Physician] - 1 Week Kurtis Argueta MD [Staff Physician] - Alba Patrick MD [Primary Care Provider] - 1 Week Disposition: HOME - Home Medications Comprehensive Discharge Medication List: Ambulatory Orders Ibuprofen [Motrin -] 600 mg PO TID #30 tablet 12/12/17 Albuterol Sulfate Inhaler - [Ventolin HFA Inhaler -] 2 inh PO Q6H PRN 05/28/18 Gabapentin [Neurontin -] 300 mg PO TID 28 Days #90 capsule 05/29/18 Miscellaneous Medical Supply [Outpatient Order] 1 each ASDIR #1 misc Problem List - Problems (1) Intractable back pain Code(s): M54.9 - DORSALGIA, UNSPECIFIED (2) Lumbar radiculitis Code(s): M54.16 - RADICULOPATHY, LUMBAR REGION This patient is new to me today: Yes Date on this admission: 05/29/18 Emergency Visit: Yes ED Registration Date: 05/28/18 Care time: The patient presented to the Emergency Department on the above date and was hospitalized for further evaluation of their emergent condition. Critical Care patient: No - Discharge Referral Referred to [facility] Med [facility] No
[2018-05-29 17:56] VITALS: BP 122/85; PULSE 82; TEMP 98.6
== END 2018-05-29 19:50 | disposition home or self-care (01) ==
LOC: JER 01:12 → JERBED 08:19 → J7W 11:11
PROVIDERS: ADMIT Hospitalist; ATTEND Hospitalist
PROC: 3E033NZ Introduction of Analgesics, Hypnotics, Sedatives into Peripheral Vein, Percutaneous Approach (ICD-10-PCS; principal; 2018-05-28)
PROC: 3E0333Z Introduction of Anti-inflammatory into Peripheral Vein, Percutaneous Approach (ICD-10-PCS; 2018-05-28)
PROC: 3E013GC Introduction of Other Therapeutic Substance into Subcutaneous Tissue, Percutaneous Approach (ICD-10-PCS; 2018-05-28)
DX: M54.16 Radiculopathy, lumbar region (principal); M54.42 Lumbago with sciatica, left side; F41.9 Anxiety disorder, unspecified; F32.9 Major depressive disorder, single episode, unspecified; E28.2 Polycystic ovarian syndrome; J45.909 Unspecified asthma, uncomplicated; E66.9 Obesity, unspecified; Z68.34 Body mass index [BMI] 34.0-34.9, adult
CPT/HCPCS: 96372; 96374; 96375; 97116-GP; 97162-GP; 99285-25; G0378; J0131; J1644

== ENCOUNTER 2019-09-04 21:44 | Emergency (ER) | payer BC, OTHER ==
[2019-09-04 22:03] VITALS: BP 124/67; PULSE 93; TEMP 98; BMI 34.8
[2019-09-05] MEDS ORDERED: DEXAMETHASONE LIQUID 0.5 MG/5 ML PO ONE (00:08)
[2019-09-05] MEDS ORDERED: IBUPROFEN 600 MG TABLET (FP) PO ONE ×2 (00:08→00:55)
--- NOTE | 2019-09-05 00:08 | PDOC ---
History of Present Illness - General Chief Complaint: Sore Throat Stated Complaint: SORE THROAT Time Seen by Provider: 09/04/19 22:42 History Source: Patient Exam Limitations: No Limitations Past History - Travel Traveled outside of the country in the last 30 days: No Close contact w/someone who was outside of country & ill: No - Past Medical History Allergies/Adverse Reactions: Allergies Allergy/AdvReac Type Severity Reaction Status Date / Time corn [[place]] Allergy Unknown Verified 05/29/18 16:30 egg Allergy Unknown Verified 05/29/18 16:30 peanut Allergy Unknown Verified 05/29/18 16:30 No Known Drug Allergies Allergy Verified 05/29/18 16:30 shellfish derived Allergy Verified 05/29/18 16:30 Home Medications: Ambulatory Orders Ibuprofen [Motrin -] 600 mg PO TID #30 tablet 12/12/17 Albuterol Sulfate Inhaler - [Ventolin HFA Inhaler -] 2 inh PO Q6H PRN 05/28/18 Gabapentin [Neurontin -] 300 mg PO TID 28 Days #90 capsule 05/29/18 Miscellaneous Medical Supply [Outpatient Order] 1 each ASDIR #1 misc 05/29/18 Anemia: No Asthma: Yes Cancer: No Cardiac Disorders: No CVA: No COPD: No CHF: No Dementia: No Diabetes: No GI Disorders: No Disorders: No HTN: No Hypercholesterolemia: No Liver Disease: No Seizures: No Thyroid Disease: Yes (HYPOTHYROIDISM) - Immunization History Immunization Up to Date: Yes - Psycho Social/Smoking Cessation Hx Smoking History: Current some day smoker Have you smoked in the past 12 months: Yes Number of Cigarettes Smoked Daily: 3 Information on smoking cessation initiated: No Hx Alcohol Use: No Drug/Substance Use Hx: No Substance Use Type: None Hx Substance Use Treatment: No Review of Systems - Review of Systems Able to Perform ROS?: Yes Comments:: 09/05/19 00:05 CONSTITUTIONAL: Absent: fever, chills, diaphoresis, generalized weakness, malaise, loss of appetite HEENT: Present: sore throat, nasal congestion Absent: rhinorrhea, throat swelling, difficulty swallowing, mouth swelling, ear pain, eye pain, visual Changes CARDIOVASCULAR: Absent: chest pain, loss of consciousness, palpitations, irregular heart rate, peripheral edema RESPIRATORY: Absent: cough, shortness of breath, dyspnea with exertion, orthopnea, wheezing, stridor, hemoptysis GASTROINTESTINAL: Absent: abdominal pain, abdominal distension, nausea, vomiting, diarrhea, constipation, melena, hematochezia GENITOURINARY: Absent: dysuria, frequency, urgency, hesitancy, hematuria, flank pain, genital pain MUSCULOSKELETAL: Absent: myalgia, arthralgia, joint swelling SKIN: Absent: rash, itching, pallor HEMATOLOGIC/IMMUNOLOGIC: Absent: easy bleeding, easy bruising, lymphadenopathy, frequent infections ENDOCRINE: Absent: unexplained weight gain, unexplained weight loss, heat intolerance, cold intolerance NEUROLOGIC: Absent: headache, focal weakness or paresthesias, dizziness, unsteady gait, seizure, mental status changes, bladder or bowel incontinence PSYCHIATRIC: Absent: anxiety, depression, suicidal or homicidal ideation, hallucinations. Is the patient limited Japanese proficient: No *Physical Exam - Vital Signs Last Vital Signs Temp Pulse Resp BP Pulse Ox 98 F 93 H 19 124/67 100 09/04/19 21:59 09/04/19 21:59 09/04/19 21:59 09/04/19 21:59 09/04/19 21:59 - Physical Exam 09/05/19 00:05 GENERAL: The patient is awake, alert, and fully oriented, in no acute distress. HEAD: Normal with no signs of trauma. EYES: Pupils equal, round and reactive to light, extraocular movements intact, sclera anicteric, conjunctiva clear. HEENT: No nasal congestion or rhinorrhea. No sinus Tenderness. Mucous membranes are moist. (+) tonsillar erythema, exudate. No edema. Uvula is midline. No TM bulging, dullness or erythema EXTREMITIES: Normal range of motion, no edema. NEUROLOGICAL: Normal speech, normal gait. PSYCH: Normal mood, normal affect. SKIN: Warm, Dry, normal turgor, no rashes or lesions noted. Medical Decision Making - Medical Decision Making 09/05/19 00:06 The patient is a 24-year-old female with no past medical history presents the ER with 4 days of sore throat and nasal congestion. She states she recently finished a course of cefdinir for sinus infection. She states after finishing the medication is when she started with her sore throat and nasal congestion. She has not taken any medication at home for her pain. Denies fevers, chills, cough, nausea, vomiting diarrhea. A/P: Pharyngitis On exam the throat is mildly erythematous with exudate. No edema. Uvula is midline. Rest of exam is benign. Rapid strep is negative. Likely viral pharyngitis. We will discharge home with supportive therapy and primary care follow-up. I discussed the physical exam findings, ancillary test results and final diagnoses with the patient. I answered all of the patient's questions. The patient was satisfied with the care received and felt comfortable with the discharge plan and treatment plan. The Patient agrees to follow up with the primary care physician/specialist within 24-72 hours. Return precautions were given. Discharge - Discharge Information Problems reviewed: Yes Clinical Impression/Diagnosis: Pharyngitis Qualifiers: Pharyngitis/tonsillitis etiology: unspecified etiology Qualified Code(s): J02.9 - Acute pharyngitis, unspecified Condition: Stable Disposition: HOME - Admission No - Follow up/Referral Referrals: Alba Patrick MD [Primary Care Provider] - - Patient Discharge Instructions Patient Printed Discharge Instructions: DI for Pharyngitis/Tonsillopharyngitis -- Adult Additional Instructions: You have a sore throat or pharyngitis. Rapid strep testing was negative today. You may take Motrin 600 mg every 6 hours as needed for pain. Please do warm water gargles and cough drops to help with your pain. Change your toothbrush when you started feeling better. Follow-up with your primary care doctor. Return to the ER for fever, difficulty breathing, difficulty swallowing, or if you have any changes in your symptoms. - Post Discharge Activity Work/Back to School Note: Back to Work
--- NOTE | 2019-09-05 00:11 | PDOC ---
*Physical Exam - Vital Signs Last Vital Signs Temp Pulse Resp BP Pulse Ox 98 F 93 H 19 124/67 100 09/04/19 21:59 09/04/19 21:59 09/04/19 21:59 09/04/19 21:59 09/04/19 21:59 Medical Decision Making - Medical Decision Making 09/05/19 00:10 Case reviewed, agree with assessment and plan Discharge - Discharge Information Problems reviewed: Yes Clinical Impression/Diagnosis: Pharyngitis Qualifiers: Pharyngitis/tonsillitis etiology: unspecified etiology Qualified Code(s): J02.9 - Acute pharyngitis, unspecified Condition: Stable Disposition: HOME - Follow up/Referral Referrals: Alba Patrick MD [Primary Care Provider] - - Patient Discharge Instructions Patient Printed Discharge Instructions: DI for Pharyngitis/Tonsillopharyngitis -- Adult Additional Instructions: You have a sore throat or pharyngitis. Rapid strep testing was negative today. You may take Motrin 600 mg every 6 hours as needed for pain. Please do warm water gargles and cough drops to help with your pain. Change your toothbrush when you started feeling better. Follow-up with your primary care doctor. Return to the ER for fever, difficulty breathing, difficulty swallowing, or if you have any changes in your symptoms. - Post Discharge Activity Work/Back to School Note: Back to Work
[2019-09-05] MEDS ORDERED: DEXAMETHASONE SOD PHOSPHATE 10 MG/1 ML VIAL ONE (00:55)
== END 2019-09-05 01:00 | disposition home or self-care (01) ==
LOC: JER 21:44
DX: J02.9 Acute pharyngitis, unspecified (principal); J45.909 Unspecified asthma, uncomplicated; E03.9 Hypothyroidism, unspecified; F17.210 Nicotine dependence, cigarettes, uncomplicated; Z91.018 Allergy to other foods; Z91.013 Allergy to seafood; Z91.012 Allergy to eggs
CPT/HCPCS: 87070; 87880; 99284-25

== ENCOUNTER 2019-12-29 20:15 | Emergency (ER) | payer BC ==
--- NOTE | 2019-12-29 20:30 | PDOC ---
Rapid Medical Evaluation Chief Complaint: Syncope/Near Syncope Time Seen by Provider: 12/29/19 20:29 Medical Evaluation: Allergies Allergy/AdvReac Type Severity Reaction Status Date / Time corn [[place]] Allergy Unknown Verified 05/29/18 16:30 egg Allergy Unknown Verified 05/29/18 16:30 peanut Allergy Unknown Verified 05/29/18 16:30 No Known Drug Allergies Allergy Verified 05/29/18 16:30 shellfish derived Allergy Verified 05/29/18 16:30 12/29/19 20:31 24 year old female s/p syncope/ seizure last night. does not recall reports feeling hot prior to passing out. mom reports that she noted the eyes were rolled back with shaky arms. denies incontinence of urine/ bowel. patient now c/o of headache, nausea Last Vital Signs Temp Pulse Resp BP Pulse Ox 98.1 F 93 H 20 130/74 97 12/29/19 20:32 12/29/19 20:32 12/29/19 20:32 12/29/19 20:32 12/29/19 20:32 PMHX: PCOS, anxiety, migraines PE: patient alert ox3. A: syncope?/ seizure P: head ct labs 12/29/19 20:35 12/29/19 20:35 Discharge Disposition - Diagnosis Syncope and collapse - Referrals - Patient Instructions - Post Discharge Activity
[2019-12-29 20:35] VITALS: TEMP 98.1; BMI 36.0
[2019-12-29 21:11] LABS: BASO % 0.6 % (0-2.0); EOS % 3.3 % (0-4.5); HEMATOCRIT 41.7 % (32.4-45.2); HEMOGLOBIN 13.7 GM/dL (10.7-15.3); LYMPH % 29.9 % (8-40); MCH 30.4 pg (25.7-33.7); MCHC 32.8 g/dl (32.0-36.0); MEAN CELL VOLUME 92.5 fl (80-96); MEAN PLT VOLUME 9.6 fl (7.5-11.1); NEUT % 60.2 % (42.8-82.8); PLATELET COUNT 266 K/MM3 (134-434); RDW 12.9 % (11.6-15.6); WHITE BLOOD COUNT 10.5 K/mm3 (4.0-10.0)
[2019-12-29 21:14] LABS: EPI CELLS 22 /uL (0-25.1); HYALINE CASTS 3 /uL (0-3.1); PH,URINE 5.5 (5.0-8.0); URINE APPEARANCE CLEAR; URINE BACTERIA 362 /uL (0-1359); URINE BILIRUBIN NEGATIVE (NEGATIVE); URINE COLOR YELLOW; URINE GLUCOSE (UA) NEGATIVE (NEGATIVE); URINE KETONE TRACE (NEGATIVE); URINE LEUK ESTERASE NEGATIVE (NEGATIVE); URINE NITRITE NEGATIVE (NEGATIVE); URINE PROTEIN NEGATIVE (NEGATIVE); URINE WBC 7 /uL (0-25.8)
[2019-12-29 21:30] LABS: URINE RBC 74.7 /uL (0-23.9)
[2019-12-29 21:57] LABS: ALBUMIN 3.8 g/dl (3.4-5.0); ALK PHOS 57 U/L (45-117); ANION GAP 8 MMOL/L (8-16); BILIRUBIN,TOTAL 0.2 mg/dL (0.2-1); BLOOD UREA NITROGEN 12.5 mg/dL (7-18); CALCIUM 8.6 mg/dL (8.5-10.1); CHLORIDE 106 mmol/L (98-107); CO2 28 mmol/L (21-32); CREATININE 0.8 mg/dL (0.55-1.3); GLUCOSE,RANDOM 83 mg/dL (74-106); SGOT/AST 28 U/L (15-37); SGPT/ALT 43 U/L (13-61); SODIUM 142 mmol/L (136-145); TOT PROT 7.2 g/dl (6.4-8.2)
[2019-12-29] MEDS ORDERED: ACETAMINOPHEN 500 MG TABLET (FP) PO ONE (22:50)
--- NOTE | 2019-12-29 23:03 | PDOC ---
History of Present Illness - General Chief Complaint: Syncope/Near Syncope Stated Complaint: HEADACHE Time Seen by Provider: 12/29/19 20:29 - History of Present Illness Initial Comments: 12/29/19 23:07 24 yo female with pmh of vertigo, asthma, sciatica, migraines, PCOS, anxiety, depression, azygous continuation of IVC coming in for syncopal event and worsening headache that started this morning. Pt explains that she got up around 2:30 am and was feeling hot, flushed and had bilateral headache. She walked to get water and she fell down on her left side. Pt explains that she LOC and her mother who was at the scene said she was not responding for 2-3 minutes. Pt mother explains during episode she did not notice any shaking but saw daughters eyes roll back, she was diaphoretic and her body was cool to touch. Pt explains that she hit her left side of her head but denies any neck pain or stiffness, denies any prior chest pain, palpitations, urinary incontinence, or any biting of her tongue. She did have associated sxs of nausea but denies any vomitting and also one day of diarrhea but she says that is typical when she is on menstral cycle. She did have a similar episode like this last year but did not see any health care provider for it. Pt explains currently her headache is on her left side, is pulsating, and is 5/10 in pain. Pt has taken 500mg of tylenol at 2 pm and has helped moderately.She says lying down helps and that light worsens her sxs. She says that she tried to call her PCP but could only get an appointment for next week. The pain was worsening so decided to come to ED. PMH: vertigo asthma sciatica migraines PCOS anxiety depression panic attacks azygous continuation of IVC PSH: Adenoidectomy Allergies: Peanuts (anaphylaxis) LMP: occuring presently PCP: Dr. Augustina Swann Neuro: Dr. Mihai Castillo 12/29/19 23:25 Past History - Medical History Allergies/Adverse Reactions: Allergies Allergy/AdvReac Type Severity Reaction Status Date / Time corn [[place]] Allergy Unknown Verified 05/29/18 16:30 egg Allergy Unknown Verified 05/29/18 16:30 peanut Allergy Unknown Verified 05/29/18 16:30 No Known Drug Allergies Allergy Verified 05/29/18 16:30 shellfish derived Allergy Verified 05/29/18 16:30 Home Medications: Ambulatory Orders Ibuprofen [Motrin -] 600 mg PO TID #30 tablet 12/12/17 Albuterol Sulfate Inhaler - [Ventolin HFA Inhaler -] 2 inh PO Q6H PRN 05/28/18 Gabapentin [Neurontin -] 300 mg PO TID 28 Days #90 capsule 05/29/18 Miscellaneous Medical Supply [Outpatient Order] 1 each ASDIR #1 misc 05/29/18 Anemia: No Asthma: Yes Cancer: No Cardiac Disorders: No CVA: No COPD: No CHF: No Dementia: No Diabetes: No GI Disorders: No Disorders: No HTN: No Hypercholesterolemia: No Liver Disease: No Seizures: No Thyroid Disease: Yes (HYPOTHYROIDISM) Other medical history: VERTIGO, MIGRAINE, ANXIETY DEPRESSION - Immunization History Immunization Up to Date: Yes - Psycho-Social/Smoking History Smoking History: Current some day smoker Have you smoked in the past 12 months: Yes Number of Cigarettes Smoked Daily: 2 Information on smoking cessation initiated: Yes - Substance Abuse Hx (Audit-C & DAST Scrn) How often the patient has a drink containing alcohol: Monthly or less Score: In Men: 4 or > Positive; In Women: 3 or > Positive: 1 Screen Result (Pos requires Nsg. Audit-10AR): Negative Review of Systems - Review of Systems Comments:: CONSTITUTIONAL: Absent: fever, chills, generalized weakness Positive: diaphoresis HEENT: Absent: ear pain, eye pain, visual Changes Positive: Chronic nasal congestion (sinusitis) CARDIOVASCULAR: Absent: chest pain, palpitations, irregular heart rate Present: Syncopal event RESPIRATORY: Absent: cough, shortness of breath, dyspnea with exertion GASTROINTESTINAL: Absent: abdominal pain, abdominal distension, emesis, blood in stool Positive: Nausea, diarrhea GENITOURINARY: Absent: dysuria, frequency, urgency, hesitancy, hematuria, flank pain, genital pain MUSCULOSKELETAL: Absent: myalgia, arthralgia, joint swelling SKIN: Absent: rash, itching, pallor NEUROLOGIC: Positive: Headache PSYCHIATRIC: Absent: anxiety, depression, suicidal or homicidal ideation *Physical Exam - Vital Signs Last Vital Signs Temp Pulse Resp BP Pulse Ox 98.1 F 93 H 20 130/74 97 12/29/19 20:32 12/29/19 20:32 12/29/19 20:32 12/29/19 20:32 12/29/19 20:32 - Physical Exam GENERAL: Well developed, well nourished. Awake and alert. No acute distress. HEENT: Normocephalic, atraumatic. PERRLA, EOMI. NECK: Supple. Full ROM in all planes. No tenderness to palpation along cervical spine. CARDIOVASCULAR: Regular rate and rhythm. No murmurs, rubs, or gallops. PULMONARY: No evidence of respiratory distress. Lungs clear to auscultation bilaterally. No wheezing, rales or rhonchi. ABDOMINAL: Soft. Non-tender. Non-distended. No rebound or guarding. MUSCULOSKELETAL Normal range of motion at all joints. No bony deformities or tenderness. No CVA tenderness. EXTREMITIES: No cyanosis. No clubbing. No edema. No calf tenderness. SKIN: Warm and dry. Normal capillary refill. No rashes. NEUROLOGICAL: Alert, awake, appropriate. Cranial nerves 2-12 intact. No deficits to light touch and temperature in face, upper extremities and lower extremities. No motor deficits in the in face, upper extremities and lower extremities. Normal speech. Gait is normal without ataxia. PSYCHIATRIC: Cooperative. Good eye contact. Appropriate mood and affect. 12/29/19 23:26 ED Treatment Course - LABORATORY CBC & Chemistry Diagram: 12/29/19 20:46 12/29/19 20:46 - ADDITIONAL ORDERS Additional order review: Laboratory Results 12/29/19 12/29/19 12/29/19 20:46 20:46 20:46 Sodium 142 Potassium 4.0 Chloride 106 Carbon Dioxide 28 Anion Gap 8 BUN 12.5 Creatinine 0.8 Est GFR (CKD-EPI)AfAm 121.29 Est GFR (CKD-EPI)NonAf 104.65 Random Glucose 83 Calcium 8.6 Total Bilirubin 0.2 AST 28 ALT 43 Alkaline Phosphatase 57 Creatine Kinase 161 Creatine Kinase Index 1.1 CK-MB (CK-2) 1.8 Troponin I < 0.02 Total Protein 7.2 Albumin 3.8 Serum , Qual Negative Urine Color Urine Appearance Urine pH Ur Specific [place] Urine Protein Urine Glucose (UA) Urine Ketones Urine Blood Urine Nitrite Urine Bilirubin Urine Urobilinogen Ur Leukocyte Esterase Urine WBC (Auto) Urine RBC (Auto) Urine Casts (Auto) U Epithel Cells (Auto) Urine Bacteria (Auto) Blood Type A POSITIVE Antibody Screen Negative 12/29/19 20:46 Sodium Potassium Chloride Carbon Dioxide Anion Gap BUN Creatinine Est GFR (CKD-EPI)AfAm Est GFR (CKD-EPI)NonAf Random Glucose Calcium Total Bilirubin AST ALT Alkaline Phosphatase Creatine Kinase Creatine Kinase Index CK-MB (CK-2) Troponin I Total Protein Albumin Serum , Qual Urine Color Yellow Urine Appearance Clear Urine pH 5.5 D Ur Specific [place] 1.039 H Urine Protein Negative Urine Glucose (UA) Negative Urine Ketones Trace H Urine Blood Trace Urine Nitrite Negative Urine Bilirubin Negative Urine Urobilinogen 1.0 Ur Leukocyte Esterase Negative Urine WBC (Auto) 7 Urine RBC (Auto) 74.7 Urine Casts (Auto) 3 U Epithel Cells (Auto) 22 Urine Bacteria (Auto) 362 Blood Type Antibody Screen 12/29/19 20:46 RBC 4.50 MCV 92.5 MCHC 32.8 RDW 12.9 MPV 9.6 Neutrophils % 60.2 D Lymphocytes % 29.9 D Monocytes % 6.0 Eosinophils % 3.3 D Basophils % 0.6 Medical Decision Making - Medical Decision Making 24 yo female with PMH of syncopal events and migraines coming in after syncopal event and headaches that started this morning. Pt needed to be ruled out for any arrythmias, any neurological disorders such as bleed or mass, any electrolyte disorders, infections, or any anemias. Pt was given CT head, EKG, UA, CBC, and CMP. CT scan of head showed chronic right sphenoid sinusitis but no evidence of focal intracranial lesions or hemorrhage seen. Pt EKG, CBC, and CMP appeared normal. Pt UA did have some elevated blood but most likely explained due to menstrual cycle. Pt most likely diagnosis is vasovagal syncope and also migraine/tension headache. Pt was given tylenol for pain and was referred to her PCP Dr. Augustina Swann who she said she has an appointment with next week. She also was referred to see her neurologist Dr. Fuller by next week, and a water treatment plant repairer (Dr. Albarran) for holter monitor and echo. Pt was consulted to continue taking tylenol or ibuprofen for pain and agreed on discharge plan. Discharge - Discharge Information Problems reviewed: Yes Clinical Impression/Diagnosis: Vasovagal episode, Headache Condition: Improved Disposition: HOME - Follow up/Referral Referrals: Alba Patrick MD [Primary Care Provider] - Gage Albarran MD [Staff Physician] - Mihai Fuller MD [Staff Physician] - - Patient Discharge Instructions Patient Printed Discharge Instructions: DI for Syncope in Adults (Fainting), DI for Headache Additional Instructions: You came in for syncopal episode and headache that started this morning. You w ere diagnosed with a vasovagal episode and headache (either tension or migraine). Take tylenol or motrin whenever needed for headache. - Take 400mg ibuprofen every 4-6hrs or take or take 325-1000mg every 4-6 hours Max 1000 mg every four hours or 4000 mg every day Please follow up with PCP Dr. Swann in the next few days. Aso follow up with neurologist Dr. Mihai Castillo. Also please follow up with cardiology for holter monitor and echo (referral Dr. Albarran) Please return to the ED if you have: - Increased Headache - another syncopal event - Chest pain - Shortness of breath If you have any emergency call for medical help right away. - Post Discharge Activity
[2019-12-29] MEDS ORDERED: ACETAMINOPHEN 325 MG TABLET (FP) ONE (23:13)
[2019-12-29 23:22] VITALS: BP 119/65; PULSE 85
--- NOTE | 2019-12-29 23:22 | PDOC ---
Documentation entered by Kerrie Mcarthur SCRIBE, acting as scribe for Amanda Hull MD. Amanda Hull MD: This documentation has been prepared by the Matthew miller Xhesika, SCRIBE, under my direction and personally reviewed by me in its entirety. I confirm that the documentation accurately reflects all work, treatment, procedures, and medical decision making performed by me. Attending Attestation - Resident Resident Name: MunirdoryscharissaGhassanKhoi - ED Attending Attestation I have performed the following: I have examined & evaluated the patient, The case was reviewed & discussed with the resident, I agree w/resident's findings & plan, Exceptions are as noted - HPI HPI: 12/29/19 22:09 The patient is a 24y/o F with a PMH of sciatica, vertigo, chronic migraines, and PCOS who presents to the ED s/p syncope at 2:30AM. Mother notes patient's eyes rolled back and her arms were tremulous. Pt states she felt hot and had a headache prior to her syncope. Pt reports having a bilateral headache, tried to call her PCP, was not able to get an appointment so she came to the ER. Mother denies incontinence of urine/ bowel or biting her tongue. Pt states she has had similar symptoms in the past. The patient denies chest pain, shortness of breath. Denies fever, chills, cough, nausea, vomiting, diarrhea and constipation. Denies dysuria, frequency, urgency and hematuria. Allergies: corn, egg, peanut, shellfish derived. PCP: Alba Damon - Physicial Exam PE: 12/29/19 23 wnwd 24 yo female p/w in no acute distress with normal vital signs head ncat eyes luke eomi neck supple lungs cta b/l cvs [id number] abd nontender,soft skin warm and dry extremities no edema, no erythema no flank pain neuro axox3, motor strength 5/5, b/l, no ataxia, no drift, no slurred speech, no facial droop - Medical Decision Making 12/29/19 23:22 12/29/19 23:14 24 yo female with PMH anxiety, migraines,vertigo. She states when she was young her headaches were severe and required her to be home schooled wnwd 24 yo female has an episode yesterday where she felt flushed and fainted last night at 2 am. she had felt thirsty and got up to have some water and passed out in her kitchen. she has no focal neuro deficits she denies shortness of breath, ,chest pain ,vomiting She called her physician and she does have a followup appt on January [address] Alba Patrick but she wanted to be seen before then and came to the ED she only took tylenol 9 hours ago for her headache that she describes an as discomfort now, ct scan head no acute intracranial pathology, chronic sinusitis cbc no anemia, no leukocytosis chemistries wnl plan follow up with cardiology and keep appt with Dr Alba Patrick Pt already has a neurologist and will see him about her migraines Discharge 12/29/19 23:29 12/29/19 23:33 Discharge - Discharge Information Problems reviewed: Yes Clinical Impression/Diagnosis: Vasovagal episode, Headache Condition: Improved Disposition: HOME - Follow up/Referral Referrals: Mihai Fuller MD [Staff Physician] - Gage Albarran MD [Staff Physician] - Alba Patrick MD [Primary Care Provider] - - Patient Discharge Instructions Patient Printed Discharge Instructions: DI for Syncope in Adults (Fainting), DI for Headache Additional Instructions: You came in for syncopal episode and headache that started this morning. You were diagnosed with a vasovagal episode and headache (either tension or migraine). Take tylenol or motrin whenever needed for headache. - Take 400mg ibuprofen every 4-6hrs or take or take 325-1000mg every 4-6 hours Max 1000 mg every four hours or 4000 mg every day Please follow up with PCP Dr. Swann in the next few days. Aso follow up with neurologist Dr. Mihai Castillo. Also please follow up with cardiology for holter monitor and echo (referral Dr. Albarran) Please return to the ED if you have: - Increased Headache - another syncopal event - Chest pain - Shortness of breath If you have any emergency call for medical help right away. - Post Discharge Activity
--- NOTE | 2019-12-30 12:04 | EKG ---
Test Reason : Blood Pressure : / mmHG Vent. Rate : 082 BPM Atrial Rate : 082 BPM P-R Int : 166 ms QRS Dur : 092 ms QT Int : 362 ms P-R-T Axes : 052 046 046 degrees QTc Int : 422 ms NORMAL SINUS RHYTHM NORMAL ECG NO PREVIOUS ECGS AVAILABLE Confirmed by MD Benjamin, Carlos ([id number]) on 12/30/2019 12:04:40 PM Referred By: Confirmed By:Carlos Alexander MD
== END 2019-12-29 23:20 | disposition home or self-care (01) ==
LOC: JER 20:15
DX: R51 Headache (principal); R55 Syncope and collapse
CPT/HCPCS: 36415; 70450-TC; 80053; 81003; 82550; 82553; 84484; 84703; 85025; 86850; 86900; 86901; 93005; 93010; 99285-25

== ENCOUNTER 2020-07-06 11:43 | Emergency (ER) | payer OTHER | END 2020-07-06 12:29 | disposition home or self-care (01) | LOC: JVIRT 11:43 | DX: Z11.52 Encounter for screening for COVID-19 (principal); J06.9 Acute upper respiratory infection, unspecified | CPT/HCPCS: C9803; G2251-GT; Q3014-GT; U0003 ==